=== PATIENT | male | born 1955 | race Caucasian/White ===

== ENCOUNTER 2017-01-27 07:28 | Emergency (ER) | payer MEDICARE ==
[2017-01-27 05:46] LABS: BASOPHILS 0.7 %; BASOPHILS ABSOLUTE 0.05 10/3/uL (0.0-0.16); EOSINOPHILS ABSOLUTE 0.45 10/3/uL (0.0-0.53); ER CBC TAT 0 Hrs 05 Mins; HEMATOCRIT 34.3 % (40.0-51.0); HEMOGLOBIN 11.8 g/dL (13.6-17.8); IMMATURE GRANULOCYTES 0.3 %; IMMATURE GRANULOCYTES ABSOLUTE 0.02 10/3/uL (0.0-0.11); LYMPHOCYTES 14.9 %; LYMPHOCYTES ABSOLUTE 1.11 10/3/uL (0.67-4.30); MEAN CORPUS HGB CONC 34.4 g/dL (32.0-36.0); MEAN CORPUSCULAR HEMOGLOB 31.1 pg (26.0-34.0); MEAN CORPUSCULAR VOLUME 90.3 fL (80-100); MEAN PLATELET VOLUME 10.4 fL (9.2-13.0); MONOCYTES 3.6 %; MONOCYTES ABSOLUTE 0.27 10/3/uL (0.21-1.20); NEUTROPHILS 74.5 %; NEUTROPHILS ABSOLUTE 5.54 10/3/uL (2.02-8.40); PLATELET COUNT 209 10/3/uL (150-400); RBC DISTRIBUTION WIDTH 13.6 % (12.0-16.0); WHITE BLOOD CELLS 7.4 10/3/uL (4.5-10.5)
[2017-01-27 05:47] LABS: MANUAL DIFF NO %
[2017-01-27 05:55] LABS: INTERNATIONAL NORMAL RATI 1.1 UNITS (-); PROTIME (NOT ORD) 13.6 SEC (12.0-14.5)
[2017-01-27 06:04] LABS: BUN (BLOOD UREA NITROGEN) 12 MG/DL (6-23); CHEST PAIN PROFILE TAT 0 Hrs 23 Mins; CHLORIDE, SERUM 97 MMOL/L (96-112); CO2 (CARBON DIOXIDE) 27 MMOL/L (24-34); GFR AFRICAN AMERICAN 30 ML/MIN (>=60); GFR NON AFRICAN AMERICAN 26 ML/MIN (>=60); GLUCOSE, SERUM 128 MG/DL (60-99); POTASSIUM, SERUM 4.2 MMOL/L (3.5-5.3); SODIUM, SERUM 137 MMOL/L (135-148); TROPONIN I 0.04 NG/ML (<0.05)
[2017-01-27 06:05] LABS: CREATININE 2.61 MG/DL (0.70-1.30)
[~2017-01-27 07:28] MED LIST: ARANESP IV; BETHAN10B PO; CAT2 PO; COREG12 PO; COREG6 PO; DUREZOL0.05 % OPH; HEPARIN IJ; IRON INFUSION IV; K500 PO; LEVEMFLXPN SC; LEVEMIR SC; NORV10 PO; NOVOLOG SC; PLAVIX PO; PRIN10 PO; ULTRAM50 PO; VITAMIN D IJ; ZESTRIL40 MG PO; ZOFRAN4 PO; ZOFRAN8 PO
== END 2017-01-27 08:53 | disposition home or self-care (01) ==
LOC: ER 07:28
PROVIDERS: Nurse Practitioner Acute Care
DX: E87.70 Fluid overload, unspecified (principal); R11.2 Nausea with vomiting, unspecified; I10 Essential (primary) hypertension; E11.9 Type 2 diabetes mellitus without complications; Z88.8 Allergy status to other drugs, medicaments and biological substances; Z79.4 Long term (current) use of insulin; Z79.899 Other long term (current) drug therapy
CPT/HCPCS: 70450; 71010; 80048; 83735; 84484; 85025; 85610; 85730; 93005; 96374; 96375; 99285; A9270-GY; J0360; J2405; J2550